=== PATIENT | female | born 1955 | race African-American/Black ===

== ENCOUNTER → 2016-08-01 | Outpatient (CLI) | payer OTHER ==
[~2016-08-01] MED LIST: APRISO0.375 GM PO; BENTYL10 M1 PO; CATAPRES0.1 MG PO; FENOFIBRATE160 MG PO; FERRO-TIME325 MG PO; GLUCOTROL PO; HYDROCHLOROTHIA25 MG PO; HYDROCODONE-APA1 T57 PO; HYOMAX0.125 MG PO; METAXALONE800 M1 PO; METOPROLOL TAR100 MG PO; ONGLYZA5 MG PO; TALADINE150 MG PO; TEMAZEPAM30 MG PO; TRAMADOL HCL50 M1 PO; TRUBIOTIC PO; VITAMIN B-121000 MC1 PO; VITAMIN D50000 UNIT PO; VOLTAREN100 GM TP; ZOVIRAX500 MG PO
== END | disposition home or self-care (01) ==
LOC: CSSDAY 08:00
DX: K50.90 Crohn's disease, unspecified, without complications (principal); Z79.899 Other long term (current) drug therapy
CPT/HCPCS: 96365; C9487